=== PATIENT | female | born 2000 | race Caucasian/White ===

== ENCOUNTER 2019-08-01 12:59 | Emergency (ER) | payer OTHER ==
[~2019-08-01] VITALS: Ht 167.6 cm; Wt 77.1 kg
[2019-08-01] MEDS ORDERED: TRAMADOL 50 MG50 MG PO (13:55)
[2019-08-01 14:08] VITALS: BP 148/82
== END 2019-08-01 14:09 | disposition home or self-care (01) ==
LOC: M.ERS 12:59
DX: S93.492A Sprain of other ligament of left ankle, initial encounter (principal); F17.210 Nicotine dependence, cigarettes, uncomplicated; W10.8XXA Fall (on) (from) other stairs and steps, initial encounter; Y93.89 Activity, other specified; Y92.89 Other specified places as the place of occurrence of the external cause; Y99.8 Other external cause status

== ENCOUNTER 2020-09-12 14:22 | Emergency (ER) | payer OTHER ==
[~2020-09-12] VITALS: Ht 167.6 cm; Wt 81.7 kg
[~2020-09-12 14:22] MED LIST: TRAMADOL 50 MG50 MG PO
[2020-09-12 14:29] VITALS: BP 151/106
[2020-09-12] MEDS ORDERED: DEPO-PROVE150 MG/11 IM (14:33)
[2020-09-12] MEDS ORDERED: PREDNISONE 10 M10 MG PO (14:48)
[2020-09-12] MEDS ORDERED: TRIAMCINOLONE A80 G2 TOP (15:06)
== END 2020-09-12 15:08 | disposition home or self-care (01) ==
LOC: M.ERS 14:22
DX: R21 Rash and other nonspecific skin eruption (principal)

== ENCOUNTER 2021-02-02 06:33 | Emergency (ER) | payer OTHER, MEDICAID ==
[~2021-02-02] VITALS: Ht 167.6 cm; Wt 86.2 kg
[~2021-02-02 06:33] MED LIST changes: +DEPO-PROVE150 MG/11 IM; +PREDNISONE 10 M10 MG PO; +TRIAMCINOLONE A80 G2 TOP
[2021-02-02 07:10] LABS: ABSOLUTE EOSINOPHILS 0.5 thou/uL (0.0-0.7); ABSOLUTE LYMPHOCYTES 1.9 thou/uL (0.8-5.3); ABSOLUTE MONOCYTES 0.6 thou/uL (0.0-1.2); ABSOLUTE NEUTROPHILS 4.5 thou/uL (1.6-8.1); BASOPHILS 0.7 %; EOSINOPHILS 6.4 %; HEMATOCRIT 39.3 % (37.0-47.0); HEMOGLOBIN 13.6 gm/dL (12.0-15.0); LYMPHOCYTES 24.8 %; MCH 30.9 pg (26.0-34.0); MCHC 34.7 g/dL (28.0-37.0); MONOCYTES 8.3 %; MPV 7.5 fl. (7.2-11.1); NUCLEATED RBCS 0 /100WBC; PLATELET COUNT* 233 thou/uL (150-400); POLYS 59.8 %; RBC 4.41 mil/uL (4.20-5.00); RDW-CV 12.5 % (10.5-14.5); WBC 7.5 thou/uL (4.0-11.0)
[2021-02-02 07:17] LABS: CALCIUM 8.5 mg/dL (8.5-10.1); CREATININE 0.7 mg/dL (0.6-1.3); POTASSIUM 4.1 mmol/L (3.5-5.1)
[2021-02-02 07:22] LABS: ALBUMIN 3.5 g/dL (3.4-5.0); TOTAL BILIRUBIN 0.2 mg/dL (<0.1-1.0); TOTAL PROTEIN 6.9 g/dL (6.4-8.2)
[2021-02-02 09:52] VITALS: BP 134/62
== END 2021-02-02 09:53 | disposition home or self-care (01) ==
LOC: M.ERS 06:33
PROVIDERS: Personal Emergency Response Attendant
DX: O20.0 Threatened abortion (principal); R42 Dizziness and giddiness; Z3A.01 Less than 8 weeks gestation of pregnancy; Z87.42 Personal history of other diseases of the female genital tract; Z98.890 Other specified postprocedural states

== ENCOUNTER 2021-08-02 13:19 | Emergency (ER) | payer OTHER, MEDICAID ==
[~2021-08-02] VITALS: Ht 167.6 cm; Wt 81.7 kg
[2021-08-02] MEDS ORDERED: NORFLEX100 MG PO ×2 (16:05→16:10)
[2021-08-02] MEDS ORDERED: HYDROCODON-ACE1 EAC8 PO ×2 (16:05→16:09)
[2021-08-02] MEDS ORDERED: IBUPROFEN 800800 M1 PO (16:08)
[2021-08-02 16:35] VITALS: BP 138/87
== END 2021-08-02 16:36 | disposition home or self-care (01) ==
LOC: M.ERS 13:19
DX: M43.6 Torticollis (principal)